=== PATIENT | male | born 1955 | race Caucasian/White ===

== ENCOUNTER 2021-09-18 09:00 | Outpatient (CLI) | payer BC | END 2021-09-18 09:01 | disposition home or self-care (01) | LOC: SCSMRI 09:00 → SJX 09:01 | PROVIDERS: ATTEND Otolaryngology Plastic Surgery within the Head & Neck | DX: H90.3 Sensorineural hearing loss, bilateral (principal); H93.8X2 Other specified disorders of left ear | CPT/HCPCS: 70553 ==

== ENCOUNTER 2024-05-24 10:38 | Outpatient (CLI) | payer MEDICARE | END 2024-05-24 10:39 | disposition home or self-care (01) | LOC: SCSMRI 10:38 | PROVIDERS: ATTEND Otolaryngology Otolaryngic Allergy | DX: H83.01 Labyrinthitis, right ear (principal); H91.21 Sudden idiopathic hearing loss, right ear; D33.3 Benign neoplasm of cranial nerves; E23.6 Other disorders of pituitary gland | CPT/HCPCS: 36415; 70553; 76376; 82565 ==